=== PATIENT | female | born 1990 | race Caucasian/White ===

== ENCOUNTER 2018-07-18 07:29 | Day surgery (SDC) | payer OTHER ==
[2018-07-18] MEDS ORDERED: LIDOCAINE 2% (SDV) 5 ML INJ (08:55)
[2018-07-18] MEDS ORDERED: PROPOFOL 20 ML (08:55)
[2018-07-18] MEDS ORDERED: FENTAnyl 50 MCG/ML VIAL (08:55)
[2018-07-18] MEDS ORDERED: ROCURONIUM 50 MG INJ (08:55)
[2018-07-18] MEDS ORDERED: MIDAZOLAM 1 MG/ML 2 ML INJ (08:55)
[2018-07-18] MEDS ORDERED: CEFAZOLIN 1 GM INJ (08:55)
[2018-07-18] MEDS ORDERED: METOCLOPRAMIDE 10 MG INJ IV (09:00)
[2018-07-18] MEDS ORDERED: FENTAnyl 50 MCG/ML VIAL IV ×2 (09:00)
[2018-07-18] MEDS ORDERED: OXYCODONE/ACETAMINOPHEN (5/325) TAB PO ×2 (09:00)
[2018-07-18] MEDS ORDERED: MIDAZOLAM 1 MG/ML 2 ML INJ IV (09:00)
[2018-07-18] MEDS ORDERED: DIPHENHYDRAMINE 50 MG INJ (10:03)
[2018-07-18] MEDS ORDERED: ONDANSETRON 4 MG INJ (10:08)
[2018-07-18] MEDS ORDERED: FAMOTIDINE 20 MG INJ (10:08)
[2018-07-18] MEDS ORDERED: DEXAMETHASONE 4 MG/ML 5 ML INJ (10:08)
[2018-07-18] MEDS ORDERED: METOCLOPRAMIDE 10 MG INJ (10:08)
[2018-07-18] MEDS ORDERED: KETOROLAC 30 MG INJ (10:12)
[2018-07-18] MEDS ORDERED: NEOSTIGMINE 10 MG INJ (10:12)
[2018-07-18] MEDS ORDERED: GLYCOPYRROLATE 0.4 MG INJ (10:12)
[2018-07-18] MEDS: BUPIVACAINE 0.5%/EPI (SDV) 30 ML INJ (10:27)
[2018-07-18] MEDS: METHYLENE BLUE 1% 10 ML INJ (10:46)
[2018-07-18] MEDS ORDERED: ESMOLOL 10 ML (11:04)
[2018-07-18] MEDS: ONDANSETRON 4 MG INJ IV (11:37)
[2018-07-18] MEDS: MEPERIDINE 25 MG INJ IV (11:37)
[2018-07-18] MEDS: FENTAnyl 50 MCG/ML VIAL IV (12:10)
== END 2018-07-18 13:14 | disposition home or self-care (01) ==
LOC: SDS 07:29
DX: D25.9 Leiomyoma of uterus, unspecified (principal); R10.2 Pelvic and perineal pain
CPT/HCPCS: 49320; 93005